=== PATIENT | female | born 1940 | race Caucasian/White ===

== ENCOUNTER 2017-01-01 06:12 | Inpatient (IN) | payer MEDICARE ==
[~2017-01-01] VITALS: Ht 154.9 cm; Wt 74.0 kg
[2017-01-01] VITALS (12 sets, daily range): BP systolic 114–192; BP diastolic 59–91; PULSE 75–99; RESP 16–20; TEMP 96.5–98.2; O2SAT 95–98
[~2017-01-01 06:12] MED LIST: COZA100T PO; LOVA40TA PO; TAB-TAB PO; VITA200017 PO
[2017-01-01] MEDS ORDERED: SODIUM CHLORID 0.9% 500 ML INJ 500 ML IV ONE (06:30)
[2017-01-01] MEDS ORDERED: ASPIRIN 81 MG CHEW TAB CHEW ONE (06:30)
[2017-01-01] MEDS ORDERED: RESP: ALBUTEROL 2.5 MG/IPRATROPIUM 0.5 MG NEB (SCH) INH ONE (06:30)
[2017-01-01] MEDS ORDERED: ASPI81TA81 (06:33)
[2017-01-01] MEDS ORDERED: VITA2000 PO (06:33)
[2017-01-01] MEDS ORDERED: FISH1200 PO (06:33)
[2017-01-01] MEDS ORDERED: LOSA100T PO (06:33)
[2017-01-01] MEDS ORDERED: LOVA40TA PO (06:33)
[2017-01-01] MEDS ORDERED: MULTTAB24 (06:33)
--- NOTE | 2017-01-01 06:46 | PD ---
HPI Chief Complaint: Respiratory Symptoms Time Seen by Provider: 06:30 Travel History International Travel<30 days: No Contact w/Intl Traveler<30days: No Traveled to known affect area: No History of Present Illness HPI Patient is a 76-year-old female with history of hypertension, hyperlipidemia and non-small cell lung cancer, currently being treated by Dr. Hutchinson. Patient reports that she had part of her lung resected by Dr. Harman and had radiation treatment by Dr. Laguna in July. Reports that she is currently not undergoing chemotherapy and has completed her radiation treatments in July. Reports that every day, she has chest pain, back pain, neck pain, reports that the symptoms last for short time and resolves on its own. Patient reports that these symptoms began after she had her radiation treatments for her lung cancer. Reports that she woke up from sleep last night with chest pain. Reports concern as she had continuous symptoms which lasted longer than normal. Patient reports that she is having a hard time taking a deep breath, pain feels sharp and stabbing sensation. Reports that she has been coughing, reports that she has had a nonproductive cough, and was diagnosed and treated with pneumonia a few weeks ago. Reports that she currently is not taking any antibiotics at this time. Patient denies any fevers or chills at this time. PFSH Past Medical History Cancer: Yes (UTERINE, SKIN, LUNG) Cardiovascular Problems: No Diminished Hearing: No Endocrine: No Gastrointestinal Disorders: Yes (TMJ) Genitourinary: Yes (REOCCURING UTI'S) Hepatitis: No Hiatal Hernia: No Hypertension: Yes Immune Disorder: No Medical other: Yes (LYMPHODEMA) Musculoskeletal: Yes (ARTHRITIS, OSTEOPOROSIS) Neurologic: No Psychiatric: No Reproductive: Yes (UTERINE CA 2014) Respiratory: Yes (RIGHT LUNG MASS) Thyroid Disease: No ?: Not Past Surgical History AICD: No Eye Surgery: Yes (BILATERAL CATARACT SURGERY) Joint Replacement: Yes (LEFT KNEE) Oral Surgery: Yes (TONSILLECTOMY) Pacemaker: No Other Surgery: Yes Social History Alcohol Use: Yes (OCCASIONALLY ) Tobacco Use: No Substance Use: No Allergies-Medications (Allergen,Severity, Reaction): Coded Allergies: Oyster (Unverified Adverse Reaction, Unknown, NAUSEA/VOMITING, 01/01/17) Reported Meds & Prescriptions Reported Meds & Active Scripts Active Reported Vitamin D3 (Cholecalciferol) 2,000 Unit Cap 2,000 Unit PO DAILY Multivitamin (Multivitamins) 1 Tab Tab 1 Tab PO DAILY Lovastatin 40 Mg Tab 40 Mg PO HS Cozaar (Losartan Potassium) 100 Mg Tab 100 Mg PO DAILY Review of Systems General / Constitutional: No: Fever Eyes: No: Visual changes HENT: No: Headaches Cardiovascular: Positive: Chest Pain or Discomfort Respiratory: Positive: Cough, Shortness of Breath Gastrointestinal: No: Abdominal Pain Genitourinary: No: Dysuria Musculoskeletal: No: Pain Skin: No Rash Neurologic: No: Weakness Psychiatric: No: Depression Endocrine: No: Polydipsia Hematologic/Lymphatic: No: Easy Bruising Physical Exam Narrative GENERAL: mild distress SKIN: Focused skin assessment warm/dry. HEAD: Atraumatic. Normocephalic. EYES: Pupils equal and round. No scleral icterus. No injection or drainage. ENT: No nasal bleeding or discharge. Mucous membranes pink and moist. NECK: Trachea midline. No JVD. CARDIOVASCULAR: Regular rate and rhythm. No murmur appreciated. RESPIRATORY: No accessory muscle use, scattered wheezing on exam GASTROINTESTINAL: Abdomen soft, non-tender, nondistended. Hepatic and splenic margins not palpable. MUSCULOSKELETAL: No obvious deformities. No clubbing. No cyanosis. No edema. NEUROLOGICAL: Awake and alert. No obvious cranial nerve deficits. Motor grossly within normal limits. Normal speech. PSYCHIATRIC: Appropriate mood and affect; insight and judgment normal. Data Data Last Documented VS Vital Signs Date Time Temp Pulse Resp B/P Pulse Ox O2 Delivery O2 Flow Rate FiO2 01/01/17 06:21 93 18 95 01/01/17 06:15 97.7 192/91 Room Air Orders Complete Blood Count With Diff (01/01/17 06:30) Comprehensive Metabolic Panel (01/01/17 06:30) Urinalysis - C+S If Indicated (01/01/17 06:30) Blood Culture (01/01/17 06:30) Chest, Single Ap (01/01/17 06:30) Ecg Monitoring (01/01/17 06:30) Iv Access Insert/Monitor (01/01/17 06:30) Oximetry (01/01/17 06:30) B-Type Natriuretic Peptide (01/01/17 06:30) Ckmb (Isoenzyme) Profile (01/01/17 06:30) Magnesium (Mg) (01/01/17 06:30) Prothrombin Time / Inr (Pt) (01/01/17 06:30) Act Partial Throm Time (Ptt) (01/01/17 06:30) Troponin I (01/01/17 06:30) Duoneb X 1 As A Single Dose (01/01/17 06:30) Aspirin Chew (Aspirin Chew) (01/01/17 06:30) Ns (Bolus) Inj (01/01/17 06:30) MDM Medical Decision Making Medical Screen Exam Complete: Yes Emergency Medical Condition: Yes Interpretation(s) EKG at 0621, NSR at 91bpm, qt/qtc: 368/416, incomplete rbbb Vital Signs Date Time Temp Pulse Resp B/P Pulse Ox O2 Delivery O2 Flow Rate FiO2 01/01/17 06:21 93 18 95 01/01/17 06:19 94 18 95 01/01/17 06:15 97.7 99 20 192/91 95 Room Air Differential Diagnosis ACS, arrhythmia, PE, pneumonia, electrolyte abnormality Narrative Course Patient is a 76-year-old female with history of non-small cell lung cancer, presents to emergency room with complaints of chest pain, back pain, neck pain which has been ongoing but intermittent since her completion of her radiation treatment July. Patient reports that she woke up in the middle night with chest pain which has not resolved, reports concerns that she is feeling short of breath and is having difficultly taking a deep breath. Patient was placed on stratigraphy teacher upon arrival to ER. EKG obtained - no acute changes. Plan to obtain lab work and xray of chest. PE chest ordered to evaluate for possible PE. Patient was signed out to oncoming physician at change of shift Apoorva Lundberg DO January 01, 2017 06:46
--- NOTE | 2017-01-01 06:47 | RADRPT ---
EXAM DATE/TIME: 01/01/2017 06:42 [facility] COMPARISON: CHEST SINGLE AP, April 18, 2016, 10:21. CHEST SINGLE AP, April 18, 2016, 3:50. INDICATIONS : Shortness of breath. MEDICAL HISTORY : Carcinoma, lung. SURGICAL HISTORY : None. ENCOUNTER: Initial ACUITY: 3 months PAIN SCORE: 2/10 LOCATION: Right chest FINDINGS: A single view of the chest demonstrates a 6.5 x 4.5 cm rounded density right midlung zone with centra l lucency could be a cavity. Followup noncontrast chest CT is recommended. The left lung is clear. He art and mediastinum are unremarkable. Suture overlies the right hilum . Persistent mild fullness of the right paratracheal stripe. Osseous structures are intact. CONCLUSION: Rounded oval density in the right midlung zone. Noncontrast chest CT is recommended. Maxi Haney MD on January 01, 2017 at 6:44 Board Certified Radiologist. This report was verified electronically.
[2017-01-01 07:15] LABS: APTT (PATIENT) 23.8 SEC (24.3-30.1); INTERNATIONAL NORMALIZED RATIO 0.9 RATIO; PROTHROMBIN TIME - PATIENT 10.4 SEC (9.8-11.6)
[2017-01-01 07:18] LABS: AUTOMATED NEUTROPHIL # 3.3 TH/MM3 (1.8-7.7); BASOPHIL % 0.8 % (0.0-2.0); EOSINOPHIL # 0.1 TH/MM3 (0-0.4); EOSINOPHIL % 2.8 % (0.0-4.0); HEMATOCRIT 39.6 % (35.0-46.0); HEMO FLAGS DIFF FINAL; LYMPH % 20.4 % (9.0-44.0); LYMPHOCYTE # 1.1 TH/MM3 (1.0-4.8); MEAN CELL VOLUME 92.6 FL (80.0-100.0); MEAN CORPUSCULAR HEMOGLOBIN 30.8 PG (27.0-34.0); MEAN CORPUSCULAR HGB CONC 33.3 % (32.0-36.0); MONO % 13.9 % (0.0-8.0); NEUT % 62.1 % (16.0-70.0); PLATELET COUNT 143 TH/MM3 (150-450); RED BLOOD COUNT 4.28 MIL/MM3 (4.00-5.30); RED CELL DISTRIBUTION WIDTH 13.6 % (11.6-17.2); WHITE BLOOD COUNT 5.3 TH/MM3 (4.0-11.0)
[2017-01-01 07:29] LABS: ALT (GPT) 35 U/L (10-53); ANION GAP 8 MEQ/L (5-15); AST (GOT) 26 U/L (15-37); BICARBONATE 26.7 MEQ/L (21.0-32.0); BLOOD UREA NITROGEN 13 MG/DL (7-18); CHLORIDE 107 MEQ/L (98-107); GLOMERULAR FILTRATION RATE 56 ML/MIN (>89); MAGNESIUM 2.1 MG/DL (1.5-2.5); POTASSIUM 3.9 MEQ/L (3.5-5.1); SODIUM (NA) 142 MEQ/L (136-145)
[2017-01-01 07:32] LABS: ALKALINE PHOSPHATASE 126 U/L (45-117); TOTAL BILIRUBIN ADULT 0.6 MG/DL (0.2-1.0)
[2017-01-01 07:36] LABS: CREATINE KINASE 39 U/L (26-192)
[2017-01-01] MEDS ORDERED: IOHEXOL 350 MG/ML 10 ML VIAL (for RAD DIAG) IV ONE (08:33)
[2017-01-01 09:03] LABS: BLOOD, URINE NEG (NEG); GLUCOSE,URINE NEG (NEG); KETONE, URINE NEG (NEG); NITRITE,URINE NEG (NEG); SQUAMOUS EPITHELIAL CELL URINE <1 /hpf (0-5); URINE COLOR LIGHT-YELLOW (YELLW/STRAW)
[2017-01-01 09:22] LABS: COMMENT (UR) CULT NOT INDICATED; CULTURE IF INDICATED CULT NOT INDICATED
--- NOTE | 2017-01-01 09:36 | RADRPT ---
EXAM DATE/TIME: 01/01/2017 08:22 [facility] COMPARISON: CT SIMULATION, August 08, 2016, 11:26. INDICATIONS : Shortness of breath and chest pain with recent pneumonia. IV CONTRAST: 60 cc Omnipaque 350 (iohexol) IV RADIATION DOSE: 11.7 CTDIvol (mGy) MEDICAL HISTORY : Carcinoma, lung. Hypertension. SURGICAL HISTORY : Lung resection ENCOUNTER: Initial ACUITY: 1 day PAIN SCALE: 3/10 LOCATION: Bilateral chest TECHNIQUE: Volumetric scanning of the chest was performed using a pulmonary embolism protocol MIP images were re constructed. Using automated exposure control and adjustment of the mA and/or kV according to patien t size, radiation dose was kept as low as reasonably achievable to obtain optimal diagnostic quality images. FINDINGS: PULMONARY ARTERIES: There are small filling defects present within the posterior basal and lateral basal segmental vessel s of the left lung and involving the posterior basal segmental vessel branches of the right lung bill cating bilateral pulmonary embolism. LUNGS: There is been previous right lung surgery with a suture line present posteriorly. There is patchy air space disease in portions of the retrohilar right lung. There is a small right effusion. There are sc attered nodular pleural-based densities including several along the inferior aspect of the fissure as well as a couple tiny peripheral parenchymal nodules, these findings not present previously and worr isome for metastatic disease. A couple small nodules are present in the subpleural left lower lobe as well in addition mild basilar scarring. PLEURAE: Small right effusion. MEDIASTINUM: There is good visualization of the great vessels of the middle mediastinum. No evidence of mediastin al or hilar adenopathy/mass. MUSCULOSKELETAL: Within normal limits for patient age. MISCELLANEOUS: The visualized upper abdominal organs demonstrate no acute abnormality. CONCLUSION: Bilateral pulmonary embolism. Right lung pneumonia. Findings worrisome for metastatic disease Aroldo Grayson MD on January 01, 2017 at 9:19 Board Certified Radiologist. This report was verified electronically.
[2017-01-01] MEDS ORDERED: cloNIDine HCL 0.2 MG TAB PO PRN (10:45)
[2017-01-01] MEDS ORDERED: SODIUM CHLORIDE 0.9% FLUSH 10 ML FLUSH IV FLUSH PRN (10:45)
[2017-01-01] MEDS ORDERED: ACETAMINOPHEN 325 MG TAB PO PRN (10:45)
[2017-01-01] MEDS ORDERED: ONDANSETRON HCL 4 MG/2 ML VIAL IVP PRN (10:45)
[2017-01-01] MEDS ORDERED: RESP: ALBUTEROL 2.5 MG/IPRATROPIUM 0.5 MG NEB (PRN) NEB (10:45)
[2017-01-01] MEDS ORDERED: PIPERACIL-TAZO 3.375 GM PREMIX 50 ML IV SCH (10:45)
[2017-01-01] MEDS ORDERED: ENALAPRILAT 1.25 MG/ML VIAL IV PRN (10:45)
[2017-01-01] MEDS ORDERED: MAGNESIUM HYDROXIDE SUSP 30 ML CUP PO PRN (10:45)
[2017-01-01] MEDS: APIXABAN 5 MG TABLET PO SCH ×2 (10:45→19:53)
[2017-01-01] MEDS ORDERED: TEMAZEPAM 15 MG CAP PO PRN (10:45)
[2017-01-01] MEDS ORDERED: NALOXONE HCL 0.4 MG/ML AMP IV PRN (10:45)
--- NOTE | 2017-01-01 10:56 | HHI.HP ---
HPI Service [facility] Hospitalists Primary Care Physician Pietro Mathias MD Admission Diagnosis Pulmonary Embolism Travel History International Travel<30 Days: No Contact w/Intl Traveler <30 Da: No Traveled to Known Affected Are: No History of Present Illness Mrs. Purdy is a 76 y/o female with hx of adenosquamous endometrial cancer diagnosed in 2013 and recurrent right lung NSCLCA initially found in 01/[address]/PET with a 1.3 cm hypermetabolic nodule RUL s/p RUL wedge resection in 2015 pathology revealed invasive mod diff adenocarcinoma and moderate emphysema , visceral pleura uninvolved/margins neg/no LN submitted. She was found to have a local recurrence along the surgical site ans received XRT with Dr. Laguna until 07/2016. She reports that she is currently not undergoing chemotherapy. Pt presented to the ED with complaints of chest pain, back pain, neck pain which has been occurring on and off since she completed her radiation treatments back in 07/2016. She states that the symptoms last for short time and resolves on its own. She reportedly woke up from sleep last night with significant chest pain and was concerned because this lasted longer than normal. Patient reports that she was having a hard time taking a deep breath, and describes this pain as a sharp and stabbing sensation. She notes that she has had a nonproductive cough and was diagnosed with and treated for pneumonia a few weeks ago. She was seen at [facility] on 12/16/16 with cough and cold symptoms that had been present for 2 days at that time. She was prescribed Levaquin, Prednisone and Duoneb nebulizer treatments. CXR was performed on 12/16 and noted a 4.7cm right hilar and perihilar mass lesion with a small amount of adjacent surrounding perihilar infiltrate and small right pleural effusion. Patient denies any fevers or chills at this time. Review of Systems Constitutional: DENIES: Fever, Chills Respiratory: COMPLAINS OF: Cough, Shortness of breath Cardiovascular: COMPLAINS OF: Chest pain Past Family Social History Past Medical History Arthritis Cataracts Chronic back pain Hyperlipidemia Hypertension COPD CKD, stage 3 Osteoarthritis Osteoporosis Hx of Melanoma Recurrent NSCLCA, initially found in 01/[address]/PET with a 1.3 cm hypermetabolic nodule RUL s/p RUL wedge resection in 04/2016 pathology revealed invasive mod diff adenocarcinoma and moderate emphysema, visceral pleura uninvolved/margins neg/no LN submitted. She was found to have a local recurrence along the surgical site ans received XRT with Dr. Laguna. Hx of Endometrial cancer in 2014 s/p YOUNG with BSO and pathology revealing adenosquamous CA of endometrium. Past Surgical History Cataract removal Left knee replacement Tonsillectomy R thoracotomy and wedge resection in 2015 TAHBSO in 2013 Colonoscopy in 2008 Reported Medications -Vitamin D3 2,000 Units PO DAILY -Multi For Her 1 Tab PO DAILY -Fish Oil 1200 mg 1 Tab PO BID -Aspir-81 (Aspirin) 81 Mg Tabdr -Losartan 100 Mg PO DAILY -Lovastatin 40 Mg PO HS Allergies: Coded Allergies: Oyster (Unverified Adverse Reaction, Unknown, NAUSEA/VOMITING, 01/01/17) Family History Sister with hx of breast cancer Grandmother with hx of colon cancer Social History Denies any tobacco use Social alcohol use Currently Physical Exam Vital Signs Vital Signs Date Time Temp Pulse Resp B/P Pulse Ox O2 Delivery O2 Flow Rate FiO2 01/01/17 08:00 88 19 156/69 98 Nasal Cannula 2 01/01/17 06:39 18 95 01/01/17 06:21 93 18 95 01/01/17 06:19 94 18 95 01/01/17 06:15 97.7 99 20 192/91 95 Room Air Physical Exam GENERAL: This is a well-nourished, well-developed patient, in no apparent distress. HEENT: Atraumatic. Normocephalic. No temporal or scalp tenderness. No scleral icterus. Airway patent. NECK: Trachea midline, supple, nontender. CARDIO: Regular. RESP: CTA bilaterally. No wheezes, rales, or rhonchi. ABD: +BS, soft, non-tender, nondistended. EXT: Extremities without clubbing, cyanosis, or edema. NEURO: Awake and alert. Motor and sensory grossly within normal limits. Normal speech. Laboratory Laboratory Tests Test 01/01/17 01/01/17 06:34 08:40 White Blood Count 5.3 Red Blood Count 4.28 Hemoglobin 13.2 Hematocrit 39.6 Mean Corpuscular Volume 92.6 Mean Corpuscular Hemoglobin 30.8 Mean Corpuscular Hemoglobin 33.3 Concent Red Cell Distribution Width 13.6 Platelet Count 143 Mean Platelet Volume 9.2 Neutrophils (%) (Auto) 62.1 Lymphocytes (%) (Auto) 20.4 Monocytes (%) (Auto) 13.9 Eosinophils (%) (Auto) 2.8 Basophils (%) (Auto) 0.8 Neutrophils # (Auto) 3.3 Lymphocytes # (Auto) 1.1 Monocytes # (Auto) 0.7 Eosinophils # (Auto) 0.1 Basophils # (Auto) 0.0 CBC Comment DIFF FINAL Differential Comment Prothrombin Time 10.4 Prothromb Time International 0.9 Ratio Activated Partial 23.8 Thromboplast Time Sodium Level 142 Potassium Level 3.9 Chloride Level 107 Carbon Dioxide Level 26.7 Anion Gap 8 Blood Urea Nitrogen 13 Creatinine 0.96 Estimat Glomerular Filtration 56 Rate Random Glucose 145 Calcium Level 9.2 Magnesium Level 2.1 Total Bilirubin 0.6 Aspartate Amino Transf 26 (AST/SGOT) Alanine Aminotransferase 35 (ALT/SGPT) Alkaline Phosphatase 126 Total Creatine Kinase 39 Troponin I LESS THAN 0.02 B-Type Natriuretic Peptide 17 Total Protein 6.6 Albumin 3.3 Urine Color LIGHT-YELLOW Urine Turbidity CLEAR Urine pH 6.0 Urine Specific [place] 1.006 Urine Protein NEG Urine Glucose (UA) NEG Urine Ketones NEG Urine Occult Blood NEG Urine Nitrite NEG Urine Bilirubin NEG Urine Urobilinogen LESS THAN 2.0 Urine Leukocyte Esterase NEG Urine RBC 1 Urine WBC 1 Urine Squamous Epithelial <1 Cells Microscopic Urinalysis Comment CULT NOT INDICATED Date/Time Procedure Status Source Growth 01/01/17 06:45 Aerobic Blood Culture Received Blood Peripheral Pending 01/01/17 06:45 Anaerobic Blood Culture Received Blood Peripheral Pending Result Diagram: 01/01/17 0634 01/01/[address] Angiography 01/01/17 0646 Signed Impressions: Service Date/Time: December 08:22 - CONCLUSION: Bilateral pulmonary embolism. Right lung pneumonia. Findings worrisome for metastatic disease Aroldo Grayson MD Chest X-Ray 01/01/17 0630 Signed Impressions: Service Date/Time: December 06:42 - CONCLUSION: Rounded oval density in the right midlung zone. Noncontrast chest CT is recommended. Maxi Haney MD Septic Shock Reassessment Heart: Regular rate and rhythm Skin: Warm Assessment and Plan Problem List: (1) Pulmonary embolism Status: Acute Plan: - Pt with recurrent NSCLCA of the right lung s/p RUL lobectomy in 2015 and received XRT until 07/2016. - She presented to the ED at [facility] on 01/01/17 with complaints of pleuritic chest and back pain that has been occurring on and off for several months but pt experienced more severe and prolonged chest pain last night. - CTA Pulmonary (01/01) --> Bilateral pulmonary embolism. Right lung pneumonia. Findings worrisome for metastatic disease with scattered nodular pleural based densities along the inferior aspect of the fissure as well as a couple tiny peripheral parenchymal nodules, and a couple small nodules present in the subpleural left lobe which were not present on previous examination in 07/2016. - Pt was given ASA in the ED - She will be started on Eliquis - Supplemental O2 - Supportive care (2) Recurrent non-small cell lung cancer (NSCLC) Status: Chronic Plan: - Pt with recurrent NSCLCA, initially found in 01/[address]/PET with a 1.3 cm hypermetabolic nodule RUL s/p RUL wedge resection in 04/2016 pathology revealed invasive mod diff adenocarcinoma and moderate emphysema, visceral pleura uninvolved/margins neg/no LN submitted. - She was found to have a local recurrence along the surgical site ans received XRT with Dr. Laguna until 07/2016 - Pt follows with Dr. Meade (3) Pneumonia Status: Acute Plan: - Pt was recently treated for pneumonia as an outpt with Levaquin and Prednisone taper along with Duoneb treatments. - Pts cough is minimal - WBC count is WNL and pt is afebrile. (4) COPD (chronic obstructive pulmonary disease) Status: Chronic Plan: - Duonebs Q6H (5) HTN (hypertension) Status: Chronic Plan: - Home meds continued (6) Hyperlipidemia Status: Chronic Plan: - Home meds continued Assessment and Plan Patient examined. Assessment and plan formulated with Apoorva GOVEA I agree with the above. Physician Certification 2 Midnight Certification Type: Admission for Inpatient Services Order for Inpatient Services The services are ordered in accordance with Medicare regulations or non- Medicare payer requirements, as applicable. In the case of services not specified as inpatient-only, they are appropriately provided as inpatient services in accordance with the 2-midnight benchmark. Estimated LOS (days): 2 2 days is the estimated time the patient will need to remain in the hospital, assuming treatment plan goals are met and no additional complications. Post-Hospital Plan: Not yet determined Problem Qualifiers (1) Pulmonary embolism: Qualified Code: I26.99 - Other acute pulmonary embolism without acute cor pulmonale (2) Pneumonia: Qualified Code: J18.1 - Pneumonia of right middle lobe due to infectious organism Apoorva Griffin January 01, 2017 10:56 Akira Escudero DO January 03, 2017 10:58
[2017-01-01] MEDS ORDERED: cefTRIAXone INJ 1,000 MG in SODIUM CHLORIDE 0.9% INJ 100 ML IV SCH (11:00)
[2017-01-01] MEDS ORDERED: AZITHROMYCIN 250 MG TAB PO ONE (11:00)
--- NOTE | 2017-01-01 12:04 | PD ---
Data Data Last Documented VS Vital Signs Date Time Temp Pulse Resp B/P Pulse Ox O2 Delivery O2 Flow Rate FiO2 01/01/17 11:21 83 16 139/65 96 01/01/17 10:00 Nasal Cannula 2 01/01/17 06:15 97.7 Orders Complete Blood Count With Diff (01/01/17 06:30) Comprehensive Metabolic Panel (01/01/17 06:30) Urinalysis - C+S If Indicated (01/01/17 06:30) Blood Culture (01/01/17 06:30) Chest, Single Ap (01/01/17 06:30) Ecg Monitoring (01/01/17 06:30) Iv Access Insert/Monitor (01/01/17 06:30) Oximetry (01/01/17 06:30) B-Type Natriuretic Peptide (01/01/17 06:30) Ckmb (Isoenzyme) Profile (01/01/17 06:30) Magnesium (Mg) (01/01/17 06:30) Prothrombin Time / Inr (Pt) (01/01/17 06:30) Act Partial Throm Time (Ptt) (01/01/17 06:30) Troponin I (01/01/17 06:30) Albuterol-Ipratropium Neb (Duoneb Neb) (01/01/17 06:30) Aspirin Chew (Aspirin Chew) (01/01/17 06:30) Sodium Chlorid 0.9% 500 Ml Inj (Ns 500 M (01/01/17 06:30) Ct Pulmonary Angiogram (01/01/17 06:46) Electrocardiogram (01/01/17 ) Iohexol 350 Inj (Omnipaque 350 Inj) (01/01/17 08:33) Admit To Inpatient (01/01/17 ) Code Status (01/01/17 10:35) Vital Signs (Adult) Q4H (01/01/17 10:35) Activity Oob With Assistance (01/01/17 10:35) Black [place] Paver Operator / Telemetry .CONTINUOUS (01/01/17 10:35) Diet Heart Healthy (01/01/17 Lunch) Sodium Chloride 0.9% Flush (Ns Flush) (01/01/17 10:45) Sodium Chloride 0.9% Flush (Ns Flush) (01/01/17 21:00) Acetaminophen (Tylenol) (01/01/17 10:45) Ondansetron Inj (Zofran Inj) (01/01/17 10:45) Temazepam (Restoril) (01/01/17 10:45) Basic Metabolic Panel (Bmp) (01/02/17 06:00) Complete Blood Count With Diff (01/02/17 06:00) Electrocardiogram (01/01/17 10:35) Resp Oxygen Richardson C Titrat 1-4 L (01/01/17 ) Pt Request For Service (01/01/17 10:35) Scd Bilateral/Knee High ANIYAH.BID (01/01/17 10:35) Naloxone Inj (Narcan Inj) (01/01/17 10:45) Magnesium Hydroxide Liq (Milk Of Magnesi (01/01/17 10:45) Inpatient Certification (01/01/17 ) Apixaban (Eliquis) (01/01/17 10:45) Albuterol-Ipratropium Neb (Duoneb Neb) (01/01/17 14:00) Albuterol-Ipratropium Neb (Duoneb Neb) (01/01/17 10:45) Piperacil-Tazo 3.375 Gm Premix (Zosyn 3. (01/01/17 10:45) Clonidine (Catapres) (01/01/17 10:45) Enalaprilat Inj (Vasotec Inj) (01/01/17 10:45) Ceftriaxone Inj (Rocephin Inj) (01/01/17 11:00) Azithromycin (Zithromax) (01/01/17 11:00) Azithromycin (Zithromax) (01/02/17 09:00) Labs Laboratory Tests Test 01/01/17 01/01/17 06:34 08:40 White Blood Count 5.3 TH/MM3 Red Blood Count 4.28 MIL/MM3 Hemoglobin 13.2 GM/DL Hematocrit 39.6 % Mean Corpuscular Volume 92.6 FL Mean Corpuscular Hemoglobin 30.8 PG Mean Corpuscular Hemoglobin 33.3 % Concent Red Cell Distribution Width 13.6 % Platelet Count 143 TH/MM3 Mean Platelet Volume 9.2 FL Neutrophils (%) (Auto) 62.1 % Lymphocytes (%) (Auto) 20.4 % Monocytes (%) (Auto) 13.9 % Eosinophils (%) (Auto) 2.8 % Basophils (%) (Auto) 0.8 % Neutrophils # (Auto) 3.3 TH/MM3 Lymphocytes # (Auto) 1.1 TH/MM3 Monocytes # (Auto) 0.7 TH/MM3 Eosinophils # (Auto) 0.1 TH/MM3 Basophils # (Auto) 0.0 TH/MM3 CBC Comment DIFF FINAL Differential Comment Prothrombin Time 10.4 SEC Prothromb Time International 0.9 RATIO Ratio Activated Partial 23.8 SEC Thromboplast Time Sodium Level 142 MEQ/L Potassium Level 3.9 MEQ/L Chloride Level 107 MEQ/L Carbon Dioxide Level 26.7 MEQ/L Anion Gap 8 MEQ/L Blood Urea Nitrogen 13 MG/DL Creatinine 0.96 MG/DL Estimat Glomerular Filtration 56 ML/MIN Rate Random Glucose 145 MG/DL Calcium Level 9.2 MG/DL Magnesium Level 2.1 MG/DL Total Bilirubin 0.6 MG/DL Aspartate Amino Transf 26 U/L (AST/SGOT) Alanine Aminotransferase 35 U/L (ALT/SGPT) Alkaline Phosphatase 126 U/L Total Creatine Kinase 39 U/L Troponin I LESS THAN 0.02 NG/ML B-Type Natriuretic Peptide 17 PG/ML Total Protein 6.6 GM/DL Albumin 3.3 GM/DL Urine Color LIGHT-YELLOW Urine Turbidity CLEAR Urine pH 6.0 Urine Specific [place] 1.006 Urine Protein NEG mg/dL Urine Glucose (UA) NEG mg/dL Urine Ketones NEG mg/dL Urine Occult Blood NEG Urine Nitrite NEG Urine Bilirubin NEG Urine Urobilinogen LESS THAN 2.0 MG/DL Urine Leukocyte Esterase NEG Urine RBC 1 /hpf Urine WBC 1 /hpf Urine Squamous Epithelial <1 /hpf Cells Microscopic Urinalysis Comment CULT NOT INDICATED MDM Supervised Visit with KOTA: No Narrative Course This case is checked out to me by Dr. Lundberg I have reviewed the entirety of the workup with the patient. She's had pleuritic pain going on for several months now Extensive workup was done which reveals bilateral PE as well as a pulmonary infiltrate and some diffuse nodularity suggesting metastatic cancer. She is currently under treatment for her lung cancer I placed a call to Dr. Pietro Mathias her primary physician but he is out of the office and unavailable according to his staff Reviewed with Dr. Escudero who is the [facility] hospitalist and he will admit to the hospital and start anticoagulating for her bilateral PE Patient's labs are recently normal She is not hypoxic Diagnosis Primary Impression: Pulmonary embolism Qualified Code: I26.99 - Other acute pulmonary embolism without acute cor pulmonale Additional Impressions: Pneumonia Qualified Code: J18.1 - Pneumonia of right middle lobe due to infectious organism Recurrent non-small cell lung cancer (NSCLC) Admitting Information Admitting Physician Requests: Admit Chan Verma MD January 01, 2017 12:04
[2017-01-01] MEDS: RESP: ALBUTEROL 2.5 MG/IPRATROPIUM 0.5 MG NEB (SCH) NEB ×2 (14:00→19:28)
--- NOTE | 2017-01-01 16:57 | EKG ---
Date Performed: 01/01/2017 Time Performed: 06:21:41 PTAGE: 76 years EKG: Sinus rhythm MARKED LEFT AXIS DEVIATION INCOMPLETE RIGHT BUNDLE BRANCH BLOCK MODERATE VOLTAGE CRITERIA FOR LVH, C ONSIDER NORMAL VARIANT POSSIBLE SEPTAL MYOCARDIAL INFARCTION ABNORMAL ECG Compared to previous EKG [facility] 04/15/16, Compared to prior tracing no significant change DOCTOR: Edwin Jorgensen Interpretating Date/Time 01/01/2017 16:56:38
[2017-01-01] MEDS ORDERED: ACETAMINOPHEN/HYDROcodone 325 MG/5 MG TAB PO PRN (17:15)
[2017-01-01] MEDS: methylPREDNISolone SOD SUCC 125 MG/2 ML VIAL IV PUSH SCH (19:23)
[2017-01-01] MEDS: SODIUM CHLORIDE 0.9% FLUSH 10 ML FLUSH IV FLUSH SCH (19:52)
[2017-01-02] VITALS: BP 131/67; PULSE 99; RESP 16; TEMP 97; O2SAT 95
[2017-01-02 04:00] VITALS: BP 135/74; PULSE 93; RESP 16; TEMP 97; O2SAT 95
[2017-01-02] MEDS: methylPREDNISolone SOD SUCC 125 MG/2 ML VIAL IV PUSH SCH (05:28)
[2017-01-02 08:00] VITALS: BP 127/56; PULSE 93; RESP 18; TEMP 97; O2SAT 93
[2017-01-02] MEDS: RESP: ALBUTEROL 2.5 MG/IPRATROPIUM 0.5 MG NEB (SCH) NEB (08:06)
[2017-01-02 08:08] VITALS: O2SAT 95
[2017-01-02] MEDS ORDERED: AZITHROMYCIN 250 MG TAB PO SCH (09:00)
[2017-01-02] MEDS: APIXABAN 5 MG TABLET PO SCH (09:47)
[2017-01-02] MEDS: SODIUM CHLORIDE 0.9% FLUSH 10 ML FLUSH IV FLUSH SCH (09:50)
[2017-01-02 09:55] LABS: AUTOMATED NEUTROPHIL # 6.5 TH/MM3 (1.8-7.7); BASOPHIL % 0.2 % (0.0-2.0); HEMATOCRIT 39.9 % (35.0-46.0); HEMO FLAGS DIFF FINAL; LYMPH % 5.9 % (9.0-44.0); LYMPHOCYTE # 0.4 TH/MM3 (1.0-4.8); MEAN CORPUSCULAR HEMOGLOBIN 31.1 PG (27.0-34.0); MEAN CORPUSCULAR HGB CONC 33.1 % (32.0-36.0); NEUT % 92.9 % (16.0-70.0); PLATELET COUNT 143 TH/MM3 (150-450); RED BLOOD COUNT 4.25 MIL/MM3 (4.00-5.30); RED CELL DISTRIBUTION WIDTH 13.8 % (11.6-17.2)
--- NOTE | 2017-01-02 09:59 | HHI.PR ---
Subjective Remarks Pt reports that she was feeling well until she got up to walk with PT and then started feeling more SOB. No cough Afebrile. Objective Vitals Vital Signs Date Time Temp Pulse Resp B/P Pulse Ox O2 Delivery O2 Flow Rate FiO2 01/02/17 08:08 95 Nasal Cannula 2.50 01/02/17 08:00 97.0 93 18 127/56 93 01/02/17 04:00 97.0 93 16 135/74 95 01/02/17 00:00 97.0 99 16 131/67 95 01/01/17 20:09 96 01/01/17 20:06 97.3 98 19 121/64 95 01/01/17 19:28 98 Nasal Cannula 2.50 01/01/17 15:00 96.8 88 20 126/66 98 01/01/17 14:39 96.5 90 20 114/59 98 01/01/17 14:01 Nasal Cannula 2.00 01/01/17 14:01 98.2 91 20 156/78 98 2 01/01/17 11:21 83 16 139/65 96 01/01/17 10:00 75 17 140/65 98 Nasal Cannula 2 01/01/17 01/01/17 01/02/17 15:00 23:00 07:00 Intake Total 90 ml Balance 90 ml Intake Oral 90 ml # Voids 1 3 2 # Bowel Movements 1 Result Diagram: 01/01/17 0634 01/01/17 0634 Other Results Laboratory Tests Test 01/01/17 01/01/17 06:34 08:40 White Blood Count 5.3 TH/MM3 Red Blood Count 4.28 MIL/MM3 Hemoglobin 13.2 GM/DL Hematocrit 39.6 % Mean Corpuscular Volume 92.6 FL Mean Corpuscular Hemoglobin 30.8 PG Mean Corpuscular Hemoglobin 33.3 % Concent Red Cell Distribution Width 13.6 % Platelet Count 143 TH/MM3 Mean Platelet Volume 9.2 FL Neutrophils (%) (Auto) 62.1 % Lymphocytes (%) (Auto) 20.4 % Monocytes (%) (Auto) 13.9 % Eosinophils (%) (Auto) 2.8 % Basophils (%) (Auto) 0.8 % Neutrophils # (Auto) 3.3 TH/MM3 Lymphocytes # (Auto) 1.1 TH/MM3 Monocytes # (Auto) 0.7 TH/MM3 Eosinophils # (Auto) 0.1 TH/MM3 Basophils # (Auto) 0.0 TH/MM3 CBC Comment DIFF FINAL Differential Comment Prothrombin Time 10.4 SEC Prothromb Time International 0.9 RATIO Ratio Activated Partial 23.8 SEC Thromboplast Time Sodium Level 142 MEQ/L Potassium Level 3.9 MEQ/L Chloride Level 107 MEQ/L Carbon Dioxide Level 26.7 MEQ/L Anion Gap 8 MEQ/L Blood Urea Nitrogen 13 MG/DL Creatinine 0.96 MG/DL Estimat Glomerular Filtration 56 ML/MIN Rate Random Glucose 145 MG/DL Calcium Level 9.2 MG/DL Magnesium Level 2.1 MG/DL Total Bilirubin 0.6 MG/DL Aspartate Amino Transf 26 U/L (AST/SGOT) Alanine Aminotransferase 35 U/L (ALT/SGPT) Alkaline Phosphatase 126 U/L Total Creatine Kinase 39 U/L Troponin I LESS THAN 0.02 NG/ML B-Type Natriuretic Peptide 17 PG/ML Total Protein 6.6 GM/DL Albumin 3.3 GM/DL Urine Color LIGHT-YELLOW Urine Turbidity CLEAR Urine pH 6.0 Urine Specific Purlear 1.006 Urine Protein NEG mg/dL Urine Glucose (UA) NEG mg/dL Urine Ketones NEG mg/dL Urine Occult Blood NEG Urine Nitrite NEG Urine Bilirubin NEG Urine Urobilinogen LESS THAN 2.0 MG/DL Urine Leukocyte Esterase NEG Urine RBC 1 /hpf Urine WBC 1 /hpf Urine Squamous Epithelial <1 /hpf Cells Microscopic Urinalysis Comment CULT NOT INDICATED Imaging Last Impressions CT Angiography 01/01/17 0646 Signed Impressions: Service Date/Time: December 08:22 - CONCLUSION: Bilateral pulmonary embolism. Right lung pneumonia. Findings worrisome for metastatic disease Aroldo Grayson MD Chest X-Ray 01/01/17 0630 Signed Impressions: Service Date/Time: December 06:42 - CONCLUSION: Rounded oval density in the right midlung zone. Noncontrast chest CT is recommended. Maxi Haney MD Objective Remarks General: NAD, AAOx3 Chest: CTA Cardiac: Regular Abd: +BS, soft ND/NT Ext: No edema A/P Problem List: (1) Pulmonary embolism Status: Acute Plan: - Pt with recurrent NSCLCA of the right lung s/p RUL lobectomy in 2015 and received XRT until 07/2016. - She presented to the ED at [facility] on 01/01/17 with complaints of pleuritic chest and back pain that has been occurring on and off for several months but pt experienced more severe and prolonged chest pain last night. - CTA Pulmonary (01/01) --> Bilateral pulmonary embolism. Right lung pneumonia. Findings worrisome for metastatic disease with scattered nodular pleural based densities along the inferior aspect of the fissure as well as a couple tiny peripheral parenchymal nodules, and a couple small nodules present in the subpleural left lobe which were not present on previous examination in 07/2016. - Pt was given ASA in the ED and was started on Eliquis 10mg BID on 01/01 and will continue this until 01/08/17 and then she will decrease to Eliquis 5mg po BID on 01/09/17. - Pt is still requiring supplemental O2 - The case was discussed between Dr. Escudero and Dr. Meade and we will continue current treatment plan. - PT evaluated the pt and recommended either HHC/PT vs. rehab. Pt does not want to go to rehab. - We will arrange for HHC/PT - Walk test today and arrange for home O2 - Patient is to use Albuterol/Ipratropium nebulizer treatments 3-4 times per day for the next 2 days, and then can be used as needed after that for shortness of breath or wheezing. - Supportive care - Pt will need to followup with Dr. Meade in 1-2 weeks. - Pt will need to followup with Dr. Pietro Mathias in 1 week. (2) Recurrent non-small cell lung cancer (NSCLC) Status: Chronic Plan: - Pt with recurrent NSCLCA, initially found in 01/[address]/PET with a 1.3 cm hypermetabolic nodule RUL s/p RUL wedge resection in 04/2016 pathology revealed invasive mod diff adenocarcinoma and moderate emphysema, visceral pleura uninvolved/margins neg/no LN submitted. - She was found to have a local recurrence along the surgical site ans received XRT with Dr. Laguna until 07/2016 - Pt follows with Dr. Meade (3) Pneumonia Status: Acute Plan: - Pt was recently treated for pneumonia as an outpt with Levaquin and Prednisone taper along with Duoneb treatments. - Pts cough is minimal - WBC count is WNL and pt is afebrile. (4) COPD (chronic obstructive pulmonary disease) Status: Chronic Plan: - Duonebs Q6H (5) HTN (hypertension) Status: Chronic Plan: - Home meds continued (6) Hyperlipidemia Status: Chronic Plan: - Home meds continued Assessment and Plan Patient examined. Assessment and plan formulated with Apoorva Griffin PA-C. I agree with the above. Problem Qualifiers (1) Pulmonary embolism: Qualified Code: I26.99 - Other acute pulmonary embolism without acute cor pulmonale (2) Pneumonia: Qualified Code: J18.1 - Pneumonia of right middle lobe due to infectious organism Apoorva Griffin January 02, 2017 09:59 Akira Escudero DO January 03, 2017 10:58
--- NOTE | 2017-01-02 10:15 | HHI.FF ---
Face to Face Verification Diagnosis: (1) Pulmonary embolism (2) Recurrent non-small cell lung cancer (NSCLC) (3) HTN (hypertension) (4) Hyperlipidemia (5) COPD (chronic obstructive pulmonary disease) Physical Therapy Order: Evaluate and Treat, Improve ambulation, Strength and gait training Home Health Nursing Order: Signs/symptoms of disease process Oxygen administration education Nursing assessment with vital signs I have seen patient Lisa Purdy on 01/02/17. My clinical findings support the need for the requested home health care services because: Patient has SOB Deconditioned w/ increased weakness I certify that my clinical findings support that this patient is homebound because: Hx COPD- exertion dyspnea/weakness Unsteady gait/balance Apoorva Griffin January 02, 2017 10:15 Akira Escudero DO January 02, 2017 10:35
[2017-01-02] MEDS ORDERED: APIX5TAB PO ×3 (10:20→11:09)
[2017-01-02] MEDS ORDERED: OXYGENTANK NAS.CANULA (10:21)
--- NOTE | 2017-01-02 10:24 | HHI.DCPOC ---
Discharge Care Plan Diagnosis: (1) Pulmonary embolism (2) COPD (chronic obstructive pulmonary disease) (3) Recurrent non-small cell lung cancer (NSCLC) (4) HTN (hypertension) (5) Hyperlipidemia Goals to Promote Your Health - Patient is to take Eliquis 10mg twice daily until 01/08/17 and then will begin reduced dose of 5mg twice daily and continue on this dose. - Patient is to use Albuterol/Ipratropium nebulizer treatments 3-4 times per day for the next 2 days, and then can be used as needed after that for shortness of breath or wheezing. - Pt is to followup with her PCP, Dr. Pietro Mathias, in 1 week, call for an appt. - Pt is to followup with Dr. Meade, on Thursday, next week, call for an appt. Directions to Meet Your Goals Take your medications as prescribed Follow your dietary instruction Follow activity as directed Keep your appointments as scheduled Take your immunizations and boosters as scheduled If your symptoms worsen call your PCP, if no PCP go to Urgent Care Center or Emergency Room Smoking is Dangerous to Your Health. Avoid second hand smoke Call the 24-hour hour crisis hotline for domestic abuse at Apoorva Griffin January 02, 2017 10:24 Akira Escudero DO January 03, 2017 10:59
[2017-01-02 10:32] LABS: BICARBONATE 20.2 MEQ/L (21.0-32.0); POTASSIUM 3.7 MEQ/L (3.5-5.1)
[2017-01-02] MEDS ORDERED: ALBU0.08 NEB (10:37)
[2017-01-02] MEDS ORDERED: NEBULIZER/ADULT1 KIT (10:37)
[2017-01-02] MEDS ORDERED: IPRA0.02 NEB (10:37)
--- NOTE | 2017-01-02 14:19 | EKG ---
Date Performed: 01/01/2017 Time Performed: 17:50:47 PTAGE: 76 years EKG: Sinus rhythm MARKED LEFT AXIS DEVIATION POSSIBLE RIGHT VENTRICULAR CONDUCTION DELAY MODERATE VOLTAGE CRITERIA FOR LVH, CONSIDER NORMAL VARIANT POSSIBLE SEPTAL MYOCARDIAL INFARCTION , OF INDETERMINATE AGE ABNORMAL E CG Compared to prior tracing no significant change PREVIOUS TRACING : 01/01/2017 06.21 DOCTOR: Jaziel Calix Interpretating Date/Time 01/02/2017 14:17:56
== END 2017-01-02 15:18 | disposition home or self-care (01) | DRG 176 ==
LOC: NEPC 06:12 → NEDA 12:06 → HOCB 14:20
PROVIDERS: ADMIT Hospitalist; ATTEND Hospitalist
DX: I26.99 Other pulmonary embolism without acute cor pulmonale (principal); J44.9 Chronic obstructive pulmonary disease, unspecified; C34.11 Malignant neoplasm of upper lobe, right bronchus or lung; N18.3 Chronic kidney disease, stage 3 (moderate); I12.9 Hypertensive chronic kidney disease with stage 1 through stage 4 chronic kidney disease, or unspecified chronic kidney disease; E78.5 Hyperlipidemia, unspecified; M81.0 Age-related osteoporosis without current pathological fracture
CPT/HCPCS: 71010; 71275; 80048; 80053; 81001; 82550; 83735; 83880; 84484; 85025; 85610; 85730; 87040; 93005; 94640; 94664; 96360; J2930; J7040; Q9967